=== PATIENT | female | born 1970 | race Caucasian/White ===

== ENCOUNTER 2020-05-09 23:15 | Emergency (ER) | payer BC ==
[~2020-05-09] VITALS: Ht 172.7 cm; Wt 59.0 kg
--- NOTE | 2020-05-09 23:26 | NUR ---
PT [employer] FROM HOME. PER [employer] OFFICER, PT MAKING THREATENING COMMENTS TO FAMILY MEMBERS AND PUSHED MOTHER EARLIER TODAY. BEING PLACED ON 5150 BY [employer] FOR DTO. PT AAOX4, APPEARS INTOXICATED. VITAL SIGNS STABLE. RESPIRATIONS EVEN AND UNLABORED. NO ACUTE DISTRESS NOTED AT THIS TIME. SAFETY PRECAUTIONS INITIATED. [employer] AT BEDSIDE, WILL CONTINUE TO MONITOR
--- NOTE | 2020-05-09 23:42 | NUR ---
COVID SWAB SENT
[2020-05-09] MEDS ORDERED: OLANZAPINE 10 MG VIAL IM ONE (23:45)
[2020-05-09] MEDS: OLANZAPINE 10 MG VIAL IM ONE (23:49)
[2020-05-09 23:58] LABS: BASOPHILS # (AUTO) 0.1 /CMM (0.0-0.2); HEMATOCRIT 43 % (33-45); HEMOGLOBIN 14.1 g/dL (11.5-14.8); LYMPHOCYTES # (AUTO) 2.6 /CMM (0.8-4.8); MEAN CORPUSCULAR HGB CONC 33 g/dl (31.0-36.0); MEAN CORPUSCULAR VOLUME 92 fL (82-100); MONOCYTES # (AUTO) 0.3 /CMM (0.1-1.30); MONOCYTES % (AUTO) 5.6 % (2.0-12.0); NEUTROPHILS # (AUTO) 2.9 /CMM (1.8-8.9); NEUTROPHILS % (AUTO) 48.4 % (43.0-81.0); PLATELET COUNT (AUTO) 296 /CMM (150-450); RED BLOOD CELL COUNT(AUTO) 4.67 MIL/uL (4.0-5.2)
--- NOTE | 2020-05-10 00:03 | NUR ---
URINE COLLECTED, CALLED LAB FOR AUTOMOTIVE MAINTENANCE TECHNICIAN
[2020-05-10 00:16] LABS: BILIRUBIN,URINE NEGATIVE (NEGATIVE); COLOR,URINE YELLOW (YELLOW); LEUKOCYTE ESTERASE ,URINE NEGATIVE (NEGATIVE); NITRITE, URINE NEGATIVE (NEGATIVE); PROTEIN,URINE NEGATIVE (NEGATIVE); UGLUCOSE NEGATIVE (NEGATIVE); UROBILINOGEN,URINE 0.2 EU/dL (0.2)
[2020-05-10 00:17] LABS: CALCIUM, SERUM 8.9 mg/dL (8.5-10.1); CREATININE 0.8 mg/dL (0.6-1.3)
[2020-05-10 00:24] LABS: ALBUMIN 4.1 g/dL (3.4-5.0); BILIRUBIN,DIRECT 0.2 mg/dL (0.0-0.2); BILIRUBIN,TOTAL 0.5 mg/dL (0.2-1.0); TOTAL PROTEIN, SERUM 8.4 g/dL (6.4-8.2)
--- NOTE | 2020-05-10 00:24 | NUR ---
CALL FROM LAB. RAPID COVID NEGATIVE.
--- NOTE | 2020-05-10 01:09 | NUR ---
PT RESTING COMFORTABLY IN BED, EASILY AROUSABLE. VITAL SIGNS STABLE. NO ACUTE DISTRESS NOTED AT THIS TIME. WILL CONTINUE TO MONITOR
--- NOTE | 2020-05-10 07:22 | NUR ---
ASSESSED PT ON BED ASLEEP EASILY AROUSABLE, NOT IN RESPIRATORY DISTRESS, V/S STABLE, KEPT RESTED AND COMFORTABLE. WILL CONTINUE TO MONITOR.
--- NOTE | 2020-05-10 10:55 | NUR ---
CALLED CRISIS SPECIAL NEEDS TUTOR, REPEAT ETHANOL IS 185. PATIENT IS AA/OX4, AMBULATORY WITH STEADY GAIT. NO DISTRESS NOTED. DENIES SI/HI AT THIS TIME.
--- NOTE | 2020-05-10 11:38 | NUR ---
CRISIS GREASE REMOVER STAN RN AT BEDSIDE FOR EVAL AND SPOKE TO THE PATIENT AND MOTHER. WITNESSED BY THIS GAS METER REPAIR SUPERVISOR. PATIENT'S MOM STS SHE'S OK WITH THE PATIENT TO GO BACK HOME AND DOESN'T BELIEVE PATIENT BELONGS TO A PSYCH FACILITY.
--- NOTE | 2020-05-10 14:43 | NUR ---
PT AAOX4, VSS. RR EVEN & UNLABORED. DENIES ANY DISCOMFORT. Patient discharged to home in stable condition. Written and verbal after care instructions given. Patient verbalizes understanding of instruction. PT AMB WITH STEADY GAIT UPON LEAVING ED.
--- NOTE | 2020-05-10 14:44 | NUR ---
PATIENT TALKED TO HER MOM ON THE PHONE. AA/OX4, AMBULATORY WITH STEADY GAIT. NO S/SX OF ALCOHOL WITHDRAWAL SYMPTOMS AT THIS TIME. VSS.
[2020-05-10 14:49] VITALS: BP 132/74
== END 2020-05-10 14:50 | disposition home or self-care (01) ==
LOC: ER 23:15
DX: R45.851 Suicidal ideations (principal); F10.129 Alcohol abuse with intoxication, unspecified; Y90.8 Blood alcohol level of 240 mg/100 ml or more; Z88.0 Allergy status to penicillin; Z20.822 Contact with and (suspected) exposure to COVID-19
CPT/HCPCS: 36415 ×2; 80048; 80076; 80299; 80307; 80320 ×2; 81003; 85025; 87426; 96372; 99291; C9803; J3490; G0480

== ENCOUNTER 2020-06-05 00:13 | Emergency (ER) | payer BC ==
[~2020-06-05] VITALS: Ht 172.7 cm; Wt 59.0 kg
--- NOTE | 2020-06-05 00:25 | NUR ---
PATIENT BIBRA FROM HOME C/O FEELING WEAK SINCE TODAY. PATIENT STATES THAT SHE TOOK A SLEEPING PILL AND HAD SOME TO DRINK. PATIENT IS AAOX4. NO SOB. BREATHING EVENLY AND UNLABORED ON ROOM AIR. CONNECTED TO THE BREWER HELPER.
[2020-06-05 00:31] LABS: BILIRUBIN,URINE Negative (NEGATIVE); COLOR,URINE YELLOW (YELLOW); LEUKOCYTE ESTERASE ,URINE Negative (NEGATIVE); NITRITE, URINE Negative (NEGATIVE); PH,URINE 5.5 (5.0-8.0); PROTEIN,URINE Negative (NEGATIVE); UGLUCOSE Negative (NEGATIVE); UROBILINOGEN,URINE 0.2 EU/dL (0.2)
[2020-06-05 00:37] LABS: BASOPHILS # (AUTO) 0.1 /CMM (0.0-0.2); BASOPHILS % (AUTO) 0.7 % (0.0-2.0); EOSINOPHILS % (AUTO) 1.2 % (0.0-6.0); HEMATOCRIT 42 % (33-45); HEMOGLOBIN 13.5 g/dL (11.5-14.8); LYMPHOCYTES # (AUTO) 2.2 /CMM (0.8-4.8); LYMPHOCYTES % (AUTO) 26.4 % (20.0-44.0); MEAN CORPUSCULAR HGB CONC 33 g/dl (31.0-36.0); MEAN CORPUSCULAR VOLUME 93 fL (82-100); MONOCYTES # (AUTO) 0.7 /CMM (0.1-1.30); MONOCYTES % (AUTO) 8.5 % (2.0-12.0); NEUTROPHILS # (AUTO) 5.2 /CMM (1.8-8.9); NEUTROPHILS % (AUTO) 63.2 % (43.0-81.0); PLATELET COUNT (AUTO) 240 /CMM (150-450); RED BLOOD CELL COUNT(AUTO) 4.44 MIL/uL (4.0-5.2); WHITE BLOOD COUNT (AUTO) 8.3 K/uL (4.3-11.0)
[2020-06-05 00:53] LABS: BILIRUBIN,DIRECT 0.2 mg/dL (0.0-0.2); BILIRUBIN,TOTAL 0.6 mg/dL (0.2-1.0); CALCIUM, SERUM 8.6 mg/dL (8.5-10.1); CREATININE 1.1 mg/dL (0.6-1.3); POTASSIUM 4.4 mmol/L (3.5-5.1); TOTAL PROTEIN, SERUM 7.7 g/dL (6.4-8.2)
--- NOTE | 2020-06-05 01:57 | NUR ---
AMBULATORY WITH A STEADY GAIT.
--- NOTE | 2020-06-05 02:02 | NUR ---
Patient discharged to home in stable condition. Written and verbal after care instructions given. Patient verbalizes understanding of instruction.
--- NOTE | 2020-06-05 02:02 | NUR ---
PATIENT WAITING FOR RIDE IN THE WAITING ROOM.
[2020-06-05 02:04] VITALS: BP 127/83
== END 2020-06-05 02:04 | disposition home or self-care (01) ==
LOC: ER 00:13
DX: F19.10 Other psychoactive substance abuse, uncomplicated (principal); R42 Dizziness and giddiness; I10 Essential (primary) hypertension; Z88.0 Allergy status to penicillin
CPT/HCPCS: 36415; 80048-TC; 80076-TC; 82962-TC; 85025-TC; G0480

== ENCOUNTER 2020-06-11 14:55 | Emergency (ER) | payer BC ==
[~2020-06-11] VITALS: Ht 172.7 cm; Wt 59.0 kg
--- NOTE | 2020-06-11 15:20 | NUR ---
DIZZINESS X 2 DAYS W/ NOTED HIGH BLOOD PRESSURE. PATIENT A/OX4, BREATHING EVEN AND UNLABORED, NO SOB NOTED, NEEDS ATTENDED. KEPT COMFORTABLE.
[2020-06-11 16:06] LABS: BASOPHILS % (AUTO) 0.2 % (0.0-2.0); EOSINOPHILS % (AUTO) 0.7 % (0.0-6.0); HEMATOCRIT 41 % (33-45); HEMOGLOBIN 13.3 g/dL (11.5-14.8); LYMPHOCYTES # (AUTO) 0.7 /CMM (0.8-4.8); LYMPHOCYTES % (AUTO) 8.3 % (20.0-44.0); MEAN CORPUSCULAR HGB CONC 33 g/dl (31.0-36.0); MEAN CORPUSCULAR VOLUME 94 fL (82-100); MONOCYTES # (AUTO) 0.7 /CMM (0.1-1.30); MONOCYTES % (AUTO) 9.2 % (2.0-12.0); NEUTROPHILS # (AUTO) 6.5 /CMM (1.8-8.9); NEUTROPHILS % (AUTO) 81.6 % (43.0-81.0); PLATELET COUNT (AUTO) 243 /CMM (150-450); RED BLOOD CELL COUNT(AUTO) 4.32 MIL/uL (4.0-5.2)
[2020-06-11 16:12] LABS: CALCIUM, SERUM 8.7 mg/dL (8.5-10.1); CARBON DIOXIDE 24 mmol/L (21-32); CHLORIDE 92 mmol/L (98-107); CREATININE 0.7 mg/dL (0.6-1.3); GLUCOSE 151 mg/dL (74-106); POTASSIUM 3.3 mmol/L (3.5-5.1); SODIUM SERUM 129 mmol/L (136-145); UREA NITROGEN, BLOOD 10 mg/dL (7-18)
[2020-06-11] MEDS ORDERED: IV NS 0.9% 1,000 ML IV ONE (16:30)
[2020-06-11] MEDS ORDERED: POTASSIUM CHLORIDE 20 MEQ TAB.PRT.SR PO ONE ×2 (16:30→16:38)
--- NOTE | 2020-06-11 17:40 | NUR ---
Patient completed IV fluids. Patient a/ox4, breathing even and unlabored, no sob noted, needs attended. Kept comfortable. IV removed. Catheter intact and site benign. Pressure and 4x4 applied to site. No bleeding noted.Patient discharged to home in stable condition. Written and verbal after care instructions given. Patient verbalizes understanding of instruction.
[2020-06-11 17:44] VITALS: BP 150/94
== END 2020-06-11 17:45 | disposition home or self-care (01) ==
LOC: ER 15:04
DX: R42 Dizziness and giddiness (principal); I10 Essential (primary) hypertension; Z88.0 Allergy status to penicillin
CPT/HCPCS: 36415; 80048; 84484; 84703; 85025; 93005; 96360; 99284; J7030

== ENCOUNTER 2020-08-04 16:08 | Emergency (ER) | payer BC ==
[~2020-08-04] VITALS: Ht 172.7 cm; Wt 57.2 kg
[2020-08-04] MEDS ORDERED: hydrALAZINE HCL IV 20 MG VIAL IV ONE (16:30)
[2020-08-04] MEDS ORDERED: IV NS 0.9% 1,000 ML BAG IV ONE (16:30)
--- NOTE | 2020-08-04 16:30 | NUR ---
PATIENT CAME IN TO THE ER C/O DIZZINESS X 3 DAYS,BP ELEVATED,RAN OUT OF XANAX AND EFFEXOR. ON ROOM AIR, BREATHING EVENLY AND UNLABORED. CONNECTED TO THE MONITOR AND PULSE OX. KEPT COMFORTABLE, WILL CONTINUE TO MONITOR ACCORDINGLY.
[2020-08-04] MEDS ORDERED: hydrALAZINE HCL IV 20 MG VIAL ONE (16:40)
[2020-08-04 16:43] LABS: BASOPHILS % (AUTO) 0.4 % (0.0-2.0); EOSINOPHILS % (AUTO) 0.4 % (0.0-6.0); HEMATOCRIT 40 % (33-45); HEMOGLOBIN 13.1 g/dL (11.5-14.8); LYMPHOCYTES # (AUTO) 1.1 K/uL (0.8-4.8); LYMPHOCYTES % (AUTO) 11.1 % (20.0-44.0); MEAN CORPUSCULAR HGB CONC 33 g/dl (31.0-36.0); MEAN CORPUSCULAR VOLUME 97 fL (82-100); MONOCYTES # (AUTO) 0.6 K/uL (0.1-1.30); MONOCYTES % (AUTO) 5.8 % (2.0-12.0); NEUTROPHILS # (AUTO) 8.5 K/uL (1.8-8.9); NEUTROPHILS % (AUTO) 82.3 % (43.0-81.0); PLATELET COUNT (AUTO) 217 K/uL (150-450); RED BLOOD CELL COUNT(AUTO) 4.14 MIL/uL (4.0-5.2); WHITE BLOOD COUNT (AUTO) 10.3 K/uL (4.3-11.0)
[2020-08-04 16:47] LABS: CALCIUM, SERUM 9.2 mg/dL (8.5-10.1); CARBON DIOXIDE 28 mmol/L (21-32); CHLORIDE 92 mmol/L (98-107); CREATININE 0.6 mg/dL (0.6-1.3); GLUCOSE 123 mg/dL (74-106); POTASSIUM 3.1 mmol/L (3.5-5.1); SODIUM SERUM 131 mmol/L (136-145); UREA NITROGEN, BLOOD 9 mg/dL (7-18)
[2020-08-04 16:49] LABS: ALCOHOL, BLOOD < 3 mg/dL (0-0)
[2020-08-04 17:30] LABS: THYROID STIMULATING HORMONE 1.431 uIU/mL (0.358-3.74)
[2020-08-04] MEDS ORDERED: POTASSIUM CHLORIDE 20 MEQ TAB.PRT.SR PO ONE ×2 (17:30)
[2020-08-04] MEDS ORDERED: AMLO10TA4 PO (17:35)
[2020-08-04] MEDS ORDERED: POTA20PA41 PO (17:35)
[2020-08-04 18:05] VITALS: BP 142/81
--- NOTE | 2020-08-04 18:05 | NUR ---
Patient discharged to home in stable condition. Written and verbal after care instructions given. Patient verbalizes understanding of instruction.IV removed. Catheter intact and site benign. Pressure and 4x4 applied to site. No bleeding noted.
== END 2020-08-04 18:05 | disposition home or self-care (01) ==
LOC: ER 16:10
DX: R42 Dizziness and giddiness (principal); F13.10 Sedative, hypnotic or anxiolytic abuse, uncomplicated; I10 Essential (primary) hypertension; E87.6 Hypokalemia; F32.9 Major depressive disorder, single episode, unspecified; Z88.0 Allergy status to penicillin; Z60.2 Problems related to living alone
CPT/HCPCS: 36415; 71045; 80048; 80307; 80320; 84443; 85025; 93005; 96361; 96374; 99285; J0360; J7030; G0480